=== PATIENT | female | born 1985 | race African-American/Black ===

== ENCOUNTER 2022-09-11 20:21 | Emergency (ER) | payer MEDICAID ==
[~2022-09-11] VITALS: Ht 170.2 cm; Wt 123.2 kg
[2022-09-11 21:03] LABS: BASOPHILS % 0.4 % (0.0-2.0); EOSINOPHILS % 0.6 % (0.0-5.0); HEMATOCRIT. 36.9 % (36.0-48.0); HEMOGLOBIN. 12.2 g/dL (12.0-16.0); LYMPHOCYTES % 30.8 % (20.0-50.0); MEAN CORPUSCULAR HEMOGLOBIN 27.3 pg (28.0-32.0); MEAN CORPUSCULAR HGB CONC 33.1 g/dL (31.0-37.0); MEAN CORPUSCULAR VOLUME 82.4 fL (81.0-99.0); MEAN PLATELET VOLUME 8.3 fl (7.4-10.4); MONOCYTES % 7.2 % (2.0-8.0); PLATELET 303 x1000/uL (130-400); RED BLOOD CELL COUNT 4.48 mill/uL (4.2-5.4); RED CELL DISTRIBUTION WIDTH 17.7 % (11.6-14.6); WHITE BLOOD COUNT 9.3 x1000/uL (4.5-11.0)
[2022-09-11 21:09] LABS: CHLORIDE 105 mEq/L (98-107); INDEX HEMOLYSI 1 (1-3); INDEX ICTERIC 1 (1-4); INDEX LIPEMIC 1 (1-3); POTASSIUM 4.3 mEq/L (3.5-5.1); SODIUM 135 mEq/L (136-145)
[2022-09-11 21:11] LABS: HCG SCREEN NEGATIVE
[2022-09-11 21:18] LABS: ALANINE AMINOTRANSFERASE 30 IU/L (13-61); ALBUMIN 3.7 g/dL (3.4-5.0); ASPARTATE AMINOTRANSFERASE 11 IU/L (15-37); BILIRUBIN TOTAL 0.6 mg/dL (0.1-1.0); CALCIUM 8.7 mg/dL (8.5-10.1); CARBON DIOXIDE 26 mEq/L (21-32); CREATININE 0.6 mg/dL (0.6-1.3); GLUCOSE 238 mg/dL (70-105); UREA NITROGEN BLOOD 11 mg/dL (7-21)
[2022-09-11 21:32] VITALS: TEMP 98.2; O2SAT 100
[2022-09-11 22:46] LABS: CLARITY URINE CLEAR (CLEAR); COLOR URINE YELLOW (YELLOW); GLUCOSE URINE 1+ (NEGATIVE); KETONES URINE NEGATIVE (NEGATIVE); LEUKOCYTE ESTERASE URINE NEGATIVE (NEGATIVE); NITRITE URINE NEGATIVE (NEGATIVE); OCCULT BLOOD URINE NEGATIVE (NEGATIVE); PH URINE 6.5 (4.5-8.0); PROTEIN URINE NEGATIVE (NEGATIVE); SPECIFIC GRAVITY URINE 1.016 (1.005-1.030)
[2022-09-11 23:08] LABS: BACTERIA URINE NONE SEEN; RBC URINE NONE SEEN /hpf (0-2); SQUAMOUS EPITHELIAL CELL URINE FEW /lpf (RARE/1+); WBC URINE NONE SEEN /hpf (0-2)
[2022-09-12] MEDS ORDERED: ACETAMINOPHEN 325MG TABLET PO PRN (01:30)
[2022-09-12] MEDS ORDERED: KETOROLAC 60MG/2ML VIAL IM NR (01:30)
[2022-09-12 02:05] VITALS: BP 132/94; PULSE 84; RESP 18
[2022-09-12] MEDS ORDERED: NAPR-1074 MT (03:31)
[2022-09-12] MEDS ORDERED: ONDA4TAB50 MT (03:31)
== END 2022-09-12 03:51 | disposition home or self-care (01) ==
LOC: ER 22:59
DX: N83.202 Unspecified ovarian cyst, left side (principal); K80.20 Calculus of gallbladder without cholecystitis without obstruction; E11.9 Type 2 diabetes mellitus without complications; I10 Essential (primary) hypertension
CPT/HCPCS: 80053; 81003; 81025; 84703; 83690; 85025; 36415; 93005; 99285; 76705; 76856; 96372; J1885; Z7610

== ENCOUNTER 2025-01-23 07:32 | Emergency (ER) | payer MEDICAID ==
[~2025-01-23] VITALS: Ht 172.7 cm; Wt 114.0 kg
[~2025-01-23 07:32] MED LIST: NAPR-1074 MT; ONDA4TAB50 MT
[2025-01-23 07:34] VITALS: O2SAT 99
[2025-01-23] MEDS: KETOROLAC 30MG/ML VIAL IM ONE (08:49)
[2025-01-23] MEDS ORDERED: CELE100C MT (09:32)
[2025-01-23 09:41] VITALS: BP 120/81; PULSE 95; RESP 16; TEMP 36.9; O2SAT 99
== END 2025-01-23 09:43 | disposition home or self-care (01) ==
LOC: ER 07:32
DX: M25.512 Pain in left shoulder (principal); E11.9 Type 2 diabetes mellitus without complications; I10 Essential (primary) hypertension; X58.XXXA Exposure to other specified factors, initial encounter; Y93.89 Activity, other specified; Y92.89 Other specified places as the place of occurrence of the external cause; Y99.8 Other external cause status
CPT/HCPCS: 99283; 73030; 96372; J1885